=== PATIENT | male | born 1980 | race Caucasian/White ===

== ENCOUNTER 2024-02-18 02:44 | Emergency (ER) | payer OTHER ==
[~2024-02-18] VITALS: Ht 180.3 cm; Wt 90.7 kg
[2024-02-18 02:56] VITALS: BP 167/109; PULSE 94; RESP 16; TEMP 97.4; O2SAT 98
[2024-02-18] MEDS ORDERED: CEPH-588 PO (03:30)
[2024-02-18] MEDS ORDERED: IBUP-2213 PO (03:30)
== END 2024-02-18 03:38 | disposition home or self-care (01) ==
LOC: MED 02:44
DX: J34.0 Abscess, furuncle and carbuncle of nose (principal); R03.0 Elevated blood-pressure reading, without diagnosis of hypertension; Z79.899 Other long term (current) drug therapy; Z79.1 Long term (current) use of non-steroidal anti-inflammatories (NSAID)
CPT/HCPCS: 99283

== ENCOUNTER 2024-06-20 23:19 | Emergency (ER) | payer OTHER ==
[~2024-06-20] VITALS: Ht 180.3 cm; Wt 90.7 kg
[~2024-06-20 23:19] MED LIST: CEPH-588 PO; IBUP-2213 PO
[2024-06-20 23:31] VITALS: BP 132/73; PULSE 92; RESP 18; TEMP 98; O2SAT 98
== END 2024-06-21 01:16 | disposition left against medical advice (07) ==
LOC: MED 23:19
DX: L02.414 Cutaneous abscess of left upper limb (principal); Z88.6 Allergy status to analgesic agent; Z53.21 Procedure and treatment not carried out due to patient leaving prior to being seen by health care provider

== ENCOUNTER 2024-07-31 02:39 | Emergency (ER) | payer OTHER ==
[~2024-07-31] VITALS: Ht 180.3 cm; Wt 86.2 kg
[2024-07-31 02:54] VITALS: BP 160/102; PULSE 90; RESP 16; TEMP 98.1; O2SAT 98
[2024-07-31 04:15] VITALS: BP 160/102; PULSE 90; RESP 16; TEMP 98.1; O2SAT 98
== END 2024-07-31 04:15 | disposition home or self-care (01) ==
LOC: MED 02:39
DX: D17.22 Benign lipomatous neoplasm of skin and subcutaneous tissue of left arm (principal); F17.200 Nicotine dependence, unspecified, uncomplicated; F15.90 Other stimulant use, unspecified, uncomplicated; Z79.899 Other long term (current) drug therapy; Z88.6 Allergy status to analgesic agent
CPT/HCPCS: 99282